=== PATIENT | female | born 1990 | race American Indian/Alaskan Native ===

== ENCOUNTER 2018-06-01 11:32 | Emergency (ER) | payer SELFPAY ==
--- NOTE | 2018-06-01 12:01 | Emergency Department Report ---
Blank Doc - Documentation Documentation: This is a 28-year-old female that presents with chest pain with some shortness of breathe. Denies any radiation of pain. This initial assessment diagnostic orders/clinical plan/treatment(s) is/are subject to change based on patient's health status, clinical progression and re- assessment by fellow clinical providers in the ED. Further treatment and workup at subsequent clinical providers discretion. Patient/guardians urged not to elope from ED s their condition may be serious if not clinically assessed and managed. Initial orders include: 1-patient sent to [facility] for further evaluation and treatment. 2- labs 3- cxr 4- ekg
[2018-06-01 12:03] VITALS: BP 118/70
== END 2018-06-01 12:20 | disposition left against medical advice (07) ==
LOC: ED 11:32
DX: R07.89 Other chest pain (principal); Z53.21 Procedure and treatment not carried out due to patient leaving prior to being seen by health care provider
CPT/HCPCS: 93005; 93010